=== PATIENT | female | born 1995 | race Two or more races ===

== ENCOUNTER 2018-04-10 12:33 | Emergency (ER) | payer MEDICAID, OTHER ==
[~2018-04-10] VITALS: Ht 157.5 cm; Wt 76.0 kg
[2018-04-10 12:43] VITALS: BP 112/73
== END 2018-04-10 16:06 | disposition home or self-care (01) ==
LOC: ED 14:51
DX: O26.891 Other specified pregnancy related conditions, first trimester (principal); O99.511 Diseases of the respiratory system complicating pregnancy, first trimester; J02.0 Streptococcal pharyngitis; R10.9 Unspecified abdominal pain; Z3A.11 11 weeks gestation of pregnancy
CPT/HCPCS: 76700; 76801; 93005; 99284

== ENCOUNTER 2019-10-09 10:44 | Day surgery (SDC) | payer MEDICAID ==
[~2019-10-09] VITALS: Ht 157.5 cm; Wt 77.5 kg
[2019-10-09] MEDS ORDERED: ONDANSETRON 2MG/ML, 2ML ONE ×2 (11:16→14:20)
[2019-10-09] MEDS ORDERED: MORPHINE SULFATE 4 MG/ML, 1ML ONE (11:16)
[2019-10-09 11:23] LABS: BASOPHILS # (AUTO) 0.03 x10^3/uL (0-0.1); BASOPHILS % (AUTO) 0 % (0-1); EOSINOPHILS # (AUTO) 0.07 x10^3/uL (0-0.4); EOSINOPHILS % (AUTO) 1 % (1-7); LYMPHOCYTES # (AUTO) 0.89 x10^3/uL (1-3.4); LYMPHOCYTES % (AUTO) 14 % (22-44); MD NO; MEAN CORPUSCULAR HEMOGLOBIN 27.3 pg (27.0-34.8); MEAN CORPUSCULAR HGB CONC 32.4 g/dL (32.4-35.8); MEAN CORPUSCULAR VOLUME 84.3 fL (80-100); MEAN PLATELET VOLUME 8.6 fL (7.4-10.4); MONOCYTES # (AUTO) 0.27 x10^3/uL (0.2-0.8); MONOCYTES % (AUTO) 4 % (2-9); NEUTROPHILS # (AUTO) 5.18 x10^3/uL (1.8-6.8); NEUTROPHILS % (AUTO) 81 % (42-75); PLATELET COUNT 411 x10^3/uL (130-400); RED BLOOD COUNT 3.81 x10^6/uL (3.82-5.3); RED CELL DISTRIBUTION WIDTH 16.2 % (9.6-15.2)
[2019-10-09] MEDS ORDERED: MORPHINE SULFATE 4 MG/ML, 1ML IVPush PRN (11:30)
[2019-10-09] MEDS ORDERED: ONDANSETRON 2MG/ML, 2ML IVPush ONE (11:30)
[2019-10-09] MEDS ORDERED: SODIUM CHLORIDE 0.9% 1,000ML IVBOLUS ONE (11:30)
--- NOTE | 2019-10-09 11:32 | NUR ---
IV ESTABLISHED AND PT MEDICATED PER JAN, PT GIVEN URINE CUP FOR UA.
[2019-10-09 11:35] LABS: ALANINE AMINOTRANSFERASE 371 U/L (12-78); ALBUMIN 3.2 g/dL (3.4-5.0); ANION GAP 8 mmol/L (5-15); CALCIUM 8.2 mg/dL (8.5-10.1); CHLORIDE 111 mmol/L (98-107); CREATININE 0.72 mg/dL (0.55-1.02)
[2019-10-09 11:39] LABS: ALKALINE PHOSPHATASE 230 U/L (45-117); BILIRUBIN,TOTAL 1.9 mg/dL (0.2-1.0); TOTAL PROTEIN 6.8 g/dL (6.4-8.2)
--- NOTE | 2019-10-09 12:34 | NUR ---
URINE SAMPLE PROVIDED AND WALKED TO LAB
[2019-10-09] MEDS ORDERED: POTASSIUM CHLORIDE 20 MEQ in D5%-0.45% NACL 1,000 ML IV ONE (12:42)
[2019-10-09 12:53] LABS: MICROSCOPIC INDICATED
[2019-10-09] MEDS ORDERED: CEFOTETAN PMX 1GM/50ML 50 ML ONE (12:56)
[2019-10-09] MEDS ORDERED: CEFOTETAN PMX 1GM/50ML 50 ML IV ONE (13:00)
[2019-10-09] MEDS ORDERED: ONDANSETRON 2MG/ML, 2ML IVPush PRN ×2 (13:00→15:30)
[2019-10-09] MEDS ORDERED: HYDROmorphone 1 MG/ML, 1ML INJ IVPush PRN (13:00)
[2019-10-09] MEDS ORDERED: SODIUM CHLORIDE FLUSH 10ML SYR IVF PRN (13:00)
--- NOTE | 2019-10-09 13:13 | NUR ---
PT GOING TO OR, PHARMACY TO SEND D5 1/2NS W/20K TO OR
[2019-10-09] MEDS ORDERED: ROCURONIUM 10MG/ML,5ML ONE (13:14)
[2019-10-09] MEDS ORDERED: PROPOFOL 10 MG/ML, 20ML ONE (13:14)
[2019-10-09] MEDS ORDERED: SUCCINYLCHOLINE 20 MG/ML, 10ML ONE (13:14)
[2019-10-09] MEDS ORDERED: MIDAZOLAM 1 MG/ML, 2ML ONE (13:14)
[2019-10-09] MEDS ORDERED: FENTANYL PF 250 MCG/5ML ONE (13:14)
[2019-10-09 13:22] LABS: CULTURE INDICATED? NO
[2019-10-09] MEDS ORDERED: BUPIVACAINE/EPI 0.5% 1:200K ONE (13:26)
[2019-10-09] MEDS ORDERED: ACETAMINOPHEN 325 MG TABLET PO PRN (13:30)
[2019-10-09] MEDS ORDERED: HYDROmorphone 2 MG/ML, 1ML IVPush PRN (13:30)
[2019-10-09] MEDS ORDERED: hydrALAzine 20 MG/ML, 1ML IV PRN (13:30)
[2019-10-09] MEDS ORDERED: FENTANYL PF 100 MCG/2ML IV PRN (13:30)
[2019-10-09] MEDS ORDERED: OXYcodone 5 MG/5 ML ORAL.SOL UDC PO PRN (13:30)
[2019-10-09] MEDS ORDERED: ONDANSETRON 2MG/ML, 2ML IV PRN (13:30)
[2019-10-09] MEDS ORDERED: MEPERIDINE/PF 25MG/ML,1ML IVPush PRN (13:30)
[2019-10-09] MEDS ORDERED: LABETALOL 5MG/ML, 20ML IV PRN (13:30)
[2019-10-09] MEDS ORDERED: PROMETHAZINE 25 MG/ML, 1ML IV PRN (13:30)
[2019-10-09] MEDS ORDERED: DEXAMETHASONE 4 MG/ML, 1ML ONE ×2 (13:46)
[2019-10-09] MEDS ORDERED: KETOROLAC 30 MG/1 ML ONE (14:00)
[2019-10-09] MEDS ORDERED: BUPIVACAINE/EPI 0.5% 1:200K INFIL ONE (14:09)
[2019-10-09] MEDS ORDERED: SUGAMMADEX 200 MG/2 ML IVPush ONE (14:26)
[2019-10-09] MEDS ORDERED: OXYcodone 5 MG/5 ML ORAL.SOL UDC ONE (14:50)
[2019-10-09] MEDS ORDERED: ACETAMINOPHEN 650 MG/20.3 ML UDC ONE (14:50)
[2019-10-09] MEDS ORDERED: DIPHENHYDRAMINE 25 MG CAPSULE PO PRN (15:30)
[2019-10-09] MEDS: LACTATED RINGERS 1,000 ML IV SCH (16:33)
[2019-10-09] MEDS: MORPHINE SULFATE 4 MG/ML, 1ML IVPush PRN ×3 (16:48→23:16)
[2019-10-09 20:16] VITALS: BP 112/74
[2019-10-09] MEDS: ACETAMINOPHEN 325 MG TABLET PO SCH (21:21)
[2019-10-10 01:56] VITALS: BP 106/72
[2019-10-10] MEDS: ACETAMINOPHEN 325 MG TABLET PO SCH ×4 (03:00→20:09)
[2019-10-10] MEDS: LACTATED RINGERS 1,000 ML IV SCH (04:40)
[2019-10-10 05:00] VITALS: BP 115/74
[2019-10-10] MEDS: MORPHINE SULFATE 4 MG/ML, 1ML IVPush PRN ×5 (05:11→22:49)
[2019-10-10 07:31] VITALS: BP 113/67
[2019-10-10] MEDS ORDERED: FENTANYL PF 250 MCG/5ML ONE (08:10)
[2019-10-10] MEDS ORDERED: MIDAZOLAM 1 MG/ML, 2ML ONE (08:10)
[2019-10-10] MEDS ORDERED: ACETAMINOPHEN 325 MG TABLET PO PRN (08:30)
[2019-10-10] MEDS ORDERED: HYDROmorphone 2 MG/ML, 1ML IVPush PRN (08:30)
[2019-10-10] MEDS ORDERED: FENTANYL PF 100 MCG/2ML IV PRN (08:30)
[2019-10-10] MEDS ORDERED: MORPHINE SULFATE 4 MG/ML, 1ML IVPush PRN (08:30)
[2019-10-10] MEDS ORDERED: OXYcodone 5 MG/5 ML ORAL.SOL UDC PO PRN (08:30)
[2019-10-10] MEDS ORDERED: PROCHLORPERAZINE 5 MG/ML, 2ML IV PRN (08:30)
[2019-10-10] MEDS ORDERED: HALOPERIDOL 5 MG/ML IV PRN (08:30)
[2019-10-10] MEDS ORDERED: ONDANSETRON 2MG/ML, 2ML IV PRN (08:30)
[2019-10-10] MEDS ORDERED: MEPERIDINE/PF 25MG/ML,1ML IVPush PRN (08:30)
[2019-10-10] MEDS ORDERED: GLYCOPYRROLATE 0.2MG/1ML, 5ML ONE (09:31)
[2019-10-10] MEDS ORDERED: SUCCINYLCHOLINE 20 MG/ML, 10ML ONE (09:31)
[2019-10-10] MEDS ORDERED: PROPOFOL 10 MG/ML, 20ML ONE (09:31)
[2019-10-10] MEDS ORDERED: NEOSTIGMINE 1 MG/ML, 10ML ONE (09:31)
[2019-10-10] MEDS ORDERED: ONDANSETRON 2MG/ML, 2ML ONE (09:31)
[2019-10-10] MEDS ORDERED: ROCURONIUM 10MG/ML,5ML ONE (09:31)
[2019-10-10] MEDS ORDERED: DEXAMETHASONE 4 MG/ML, 1ML ONE (09:31)
[2019-10-10 10:30] VITALS: BP 111/74
[2019-10-10] MEDS ORDERED: OMNIPAQUE 350 MG/ML, 50 ML BOTTLE ONE (10:45)
[2019-10-10 14:00] VITALS: BP 103/72
[2019-10-10 19:12] VITALS: BP 99/60
[2019-10-11 01:55] VITALS: BP 110/71
[2019-10-11] MEDS: LACTATED RINGERS 1,000 ML IV SCH ×2 (02:52→15:50)
[2019-10-11] MEDS: MORPHINE SULFATE 4 MG/ML, 1ML IVPush PRN ×2 (02:57→11:54)
[2019-10-11] MEDS: ACETAMINOPHEN 325 MG TABLET PO SCH ×3 (02:58→15:00)
[2019-10-11 05:28] LABS: CHLORIDE 110 mmol/L (98-107)
[2019-10-11 05:33] LABS: ALANINE AMINOTRANSFERASE 207 U/L (12-78); ALBUMIN 2.7 g/dL (3.4-5.0); ALKALINE PHOSPHATASE 179 U/L (45-117); ANION GAP 5 mmol/L (5-15); BILIRUBIN,TOTAL 0.7 mg/dL (0.2-1.0); CALCIUM 8.1 mg/dL (8.5-10.1); CREATININE 0.64 mg/dL (0.55-1.02); TOTAL PROTEIN 5.9 g/dL (6.4-8.2)
[2019-10-11 08:21] VITALS: BP 115/78
[2019-10-11 13:13] VITALS: BP_SYST 102; BP_SYST 112; BP_DIAS 70; BP_DIAS 83
[2019-10-11] MEDS ORDERED: MIDAZOLAM 1 MG/ML, 2ML ONE (15:12)
[2019-10-11] MEDS ORDERED: FENTANYL PF 250 MCG/5ML ONE (15:12)
[2019-10-11] MEDS ORDERED: PHENYLEPHRINE 10 MG/ML ONE (15:30)
[2019-10-11] MEDS ORDERED: SUGAMMADEX 200 MG/2 ML IVPush ONE (15:30)
[2019-10-11] MEDS ORDERED: ROCURONIUM 10 MG/ML,10ML ONE (15:30)
[2019-10-11] MEDS ORDERED: DEXAMETHASONE 4 MG/ML, 1ML ONE (15:30)
[2019-10-11] MEDS ORDERED: KETOROLAC 30 MG/1 ML ONE (15:30)
[2019-10-11] MEDS ORDERED: PROPOFOL 10 MG/ML, 20ML ONE (15:30)
[2019-10-11] MEDS ORDERED: ONDANSETRON 2MG/ML, 2ML ONE (15:30)
[2019-10-11] MEDS ORDERED: MEPERIDINE/PF 25MG/ML,1ML IVPush PRN (16:30)
[2019-10-11] MEDS ORDERED: ACETAMINOPHEN 325 MG TABLET PO PRN (16:30)
[2019-10-11] MEDS ORDERED: ONDANSETRON 2MG/ML, 2ML IV PRN (16:30)
[2019-10-11] MEDS ORDERED: DIPHENHYDRAMINE 50 MG/ML, 1ML IVPush PRN (16:30)
[2019-10-11] MEDS ORDERED: OXYcodone 5 MG/5 ML ORAL.SOL UDC PO PRN (16:30)
[2019-10-11] MEDS ORDERED: FENTANYL PF 100 MCG/2ML IV PRN (16:30)
[2019-10-11] MEDS ORDERED: HYDROmorphone 2 MG/ML, 1ML IVPush PRN (16:30)
[2019-10-11 17:15] VITALS: BP 114/74
[2019-10-11] MEDS ORDERED: OXYC-302 PO (17:44)
[2019-10-11] MEDS ORDERED: POLY17PO5 PO (17:44)
== END 2019-10-11 18:10 | disposition home or self-care (01) ==
LOC: ED 11:04 → OUT 12:52 → EDIP 12:52 → UNDOADMIN 12:52 → 4NE 15:18 → EDIP 15:18 → UNDODISIN 10-11 18:10 → OUT 10-11 18:10
PROVIDERS: ATTEND Emergency Medicine
DX: K80.10 Calculus of gallbladder with chronic cholecystitis without obstruction (principal); K91.5 Postcholecystectomy syndrome; R94.5 Abnormal results of liver function studies; E80.6 Other disorders of bilirubin metabolism
CPT/HCPCS: 36415; 43260; 43262; 47563; 74300; 74328; 76700; 80053; 81001; 83690; 84703; 85025; 88304; 99285; C1769; J0330; J1100; J1885; J2250; J2270; J2370; J2405; J2704; J2710; J3010; J3490; J7030; J7120; Q9967; G0378